=== PATIENT | female | born 1985 | race Caucasian/White ===

== ENCOUNTER 2020-11-02 17:15 | Emergency (ER) | payer SELFPAY ==
[~2020-11-02] VITALS: Ht 167.6 cm; Wt 138.0 kg
[2020-11-02] MEDS ORDERED: TRAMADOL HYDROC50 M1 PO (18:27)
[2020-11-02 18:59] VITALS: BP 132/88
== END 2020-11-02 19:07 | disposition home or self-care (01) | DRG 563 ==
LOC: ED 17:15
DX: S83.91XA Sprain of unspecified site of right knee, initial encounter (principal); X50.0XXA Overexertion from strenuous movement or load, initial encounter; Y93.44 Activity, trampolining; Y92.89 Other specified places as the place of occurrence of the external cause
CPT/HCPCS: L1830